=== PATIENT | male | born 1975 | race African-American/Black ===

== ENCOUNTER 2017-12-07 15:25 | Emergency (ER) | payer MEDICAID ==
[~2017-12-07] VITALS: Ht 167.6 cm; Wt 80.5 kg
[2017-12-07 15:37] VITALS: BP 134/77
== END 2017-12-07 18:56 | disposition left against medical advice (07) ==
LOC: ER 15:25
DX: Z00.8 Encounter for other general examination (principal); Z53.21 Procedure and treatment not carried out due to patient leaving prior to being seen by health care provider

== ENCOUNTER 2018-03-19 13:13 | Emergency (ER) | payer MEDICAID ==
[~2018-03-19] VITALS: Ht 167.6 cm; Wt 80.0 kg
[2018-03-19 14:08] LABS: HEMATOCRIT 42.4 % (42.0-52.0); HEMOGLOBIN 13.5 g/dl (14.0-17.9); MEAN CORPUSCULAR HGB CONC 31.9 % (33.0-36.5); MEAN CORPUSCULAR VOLUME 94.2 FL (78-98); PLATELET COUNT 209 X10'3 (140-440); RED CELL DISTRIBUTION WIDTH 12.1 % (11.5-14.5)
[2018-03-19 14:09] LABS: URINE AMPHETAMINE SCREEN NEGATIVE (Neg); URINE BARBITUATE SCREEN NEGATIVE (Neg); URINE BENZODIAZEPINES SCREEN NEGATIVE (Neg); URINE CANNABINOID SCREEN POSITIVE (Neg); URINE COCAINE SCREEN NEGATIVE (Neg); URINE METHADONE SCREEN NEGATIVE (Neg); URINE OPIATE SCREEN NEGATIVE (Neg); URINE PHENCYCLIDINE SCREEN NEGATIVE (Neg)
[2018-03-19 14:11] LABS: CLARITY,URINE Clear (Clear); COLOR,URINE Yellow (Yellow); GLUCOSE, URINE Negative (Neg); KETONES,URINE Trace mg/dl (Neg); LEUKOCYTE ESTERASE ,URINE Trace (Neg); NITRITES, URINE Negative (Neg); OCCULT BLOOD,URINE Negative (Neg); PROTEIN,URINE Negative (Neg)
[2018-03-19 14:15] LABS: UA COLLECTION TYPE NON-SPECIFIED
[2018-03-19 14:25] LABS: ALANINE AMINOTRANSFERASE 21 U/L (12-78); ALBUMIN 3.8 G/DL (3.4-5.0); ALKALINE PHOSPHATASE 47 IU/L (46-116); ANION GAP 8 (8-16); ASPARTATE AMINO TRANSFERASE 13 U/L (10-37); BILIRUBIN,TOTAL 0.7 MG/DL (0.1-1.0); BLOOD UREA NITROGEN 10 MG/DL (7-18); BUN/CREATININE RATIO 10.1 (5.4-32.0); CALCIUM 9.3 MG/DL (8.5-10.1); CHLORIDE 103 MMOL/L (99-107); CREATININE 0.99 MG/DL (0.60-1.10); GLUCOSE 84 MG/DL (70-104); SODIUM 139 MMOL/L (135-145); TOTAL CARBON DIOXIDE 28.5 MMOL/L (24-32); TOTAL PROTEIN 7.6 G/DL (6.4-8.2); eGFR > 90 ML/MIN
[2018-03-19 14:28] LABS: MUCUS STRANDS MODERATE /LPF (Neg); SQUAMOUS EPITHELIAL CELL,UR FEW /LPF (FEW)
[2018-03-19 14:30] LABS: SPERM MODERATE /HPF (NEGATIVE)
[2018-03-19 14:35] LABS: ACETAMINOPHEN < 2.0 UG/ML (10-30); ETHANOL < 0.010 GM/DL (0.0-0.010)
[2018-03-19 14:37] LABS: BACTERIA,URINE 1+ /HPF (Neg); WBC,URINE 0-4 /HPF (0-4)
[2018-03-19 14:49] LABS: TOTAL CELLS COUNTED 100
[2018-03-19 14:51] LABS: PLATELET ESTIMATE NORMAL
[2018-03-19 14:52] LABS: GIANT PLATELET FEW; LARGE PLATELETS FEW
[2018-03-19 14:53] LABS: BASOPHILS % (MANUAL) 1 % (0-1); LYMPHOCYTES % (MANUAL) 38 % (21-51)
[2018-03-19] MEDS ORDERED: OLAN2.5T3 PO (16:59)
[2018-03-19] MEDS: OLANZapine 2.5MG tablet PO SCH (20:36)
[2018-03-20 06:11] VITALS: BP 138/72
[2018-03-20] MEDS: OLANZapine 2.5MG tablet PO SCH (08:14)
== END 2018-03-20 12:49 ==
LOC: ER 13:20
DX: F32.9 Major depressive disorder, single episode, unspecified (principal)
CPT/HCPCS: 36415; 80053; 80305; 80320; 80329; 81001; 84443; 85025; 99285